=== PATIENT | female | born 2000 | race Hispanic/Latino ===

== ENCOUNTER 2021-04-28 15:30 | Emergency (ER) | payer MEDICAID ==
[2021-04-28] MEDS ORDERED: Acetaminophen 325 MG TAB ONE (16:08)
[2021-04-29 13:02] LABS: SARS-CoV-2 PCR by NAA DETECTED (NotDetected)
== END 2021-04-28 17:50 | disposition home or self-care (01) ==
LOC: ERS 15:30
DX: U07.1 COVID-19 (principal); E66.09 Other obesity due to excess calories
CPT/HCPCS: 87081; 87430; 99283; U0003; U0005

== ENCOUNTER 2022-02-15 14:07 | Emergency (ER) | payer OTHER | END 2022-02-15 15:40 | disposition home or self-care (01) | LOC: ERS 14:07 | DX: S60.011A Contusion of right thumb without damage to nail, initial encounter (principal); W23.0XXA Caught, crushed, jammed, or pinched between moving objects, initial encounter ==

== ENCOUNTER 2024-11-30 11:46 | Emergency (ER) | payer OTHER, SELFPAY ==
[2024-11-30] MEDS ORDERED: Ketorolac Tromethamine 30 MG (1 mL) VIAL ONE (12:21)
== END 2024-11-30 12:46 | disposition home or self-care (01) ==
LOC: ERS 11:46
DX: M54.50 Low back pain, unspecified (principal)
CPT/HCPCS: 96372; 99283; J1885